=== PATIENT | male | born 1985 | race Caucasian/White ===

== ENCOUNTER 2017-12-30 15:20 | Emergency (ER) | payer MEDICAID, OTHER ==
[~2017-12-30] VITALS: Ht 180.3 cm; Wt 75.0 kg
[2017-12-30] MEDS ORDERED: HYDROcodone/APAP 5/325 TABLET PO ONE (16:00)
[2017-12-30] MEDS ORDERED: HYDROcodone/APAP 5/325 TABLET ONE (16:13)
[2017-12-30 16:37] LABS: BASOPHILS # (AUTO) 0.04 x10^3/uL (0-0.1); BASOPHILS % (AUTO) 1 % (0-1); EOSINOPHILS # (AUTO) 0.02 x10^3/uL (0-0.4); EOSINOPHILS % (AUTO) 0 % (1-7); LYMPHOCYTES # (AUTO) 1.21 x10^3/uL (1-3.4); LYMPHOCYTES % (AUTO) 13 % (22-44); MD NO; MEAN CORPUSCULAR HEMOGLOBIN 31.9 pg (27.5-34.5); MEAN CORPUSCULAR HGB CONC 34.4 g/dL (33.2-36.2); MEAN CORPUSCULAR VOLUME 92.8 fL (81-97); MEAN PLATELET VOLUME 8.2 fL (7.4-10.4); MONOCYTES # (AUTO) 0.54 x10^3/uL (0.2-0.8); MONOCYTES % (AUTO) 6 % (2-9); NEUTROPHILS # (AUTO) 7.19 x10^3/uL (1.8-6.8); NEUTROPHILS % (AUTO) 80 % (42-75); PLATELET COUNT 387 x10^3/uL (130-400); RED BLOOD COUNT 4.31 x10^6/uL (4.38-5.82); RED CELL DISTRIBUTION WIDTH 12.6 % (9.4-14.8)
[2017-12-30 16:40] LABS: ALBUMIN 4.2 g/dL (3.4-5.0); ANION GAP 8 mmol/L (5-15); CHLORIDE 109 mmol/L (98-107); CREATININE 1.12 mg/dL (0.7-1.3)
[2017-12-30] MEDS ORDERED: LORazepam 1MG TABLET ONE (17:24)
[2017-12-30] MEDS ORDERED: SODIUM CHLORIDE 0.9% 1,000ML IVBOLUS ONE (18:00)
[2017-12-30] MEDS ORDERED: LORazepam 1MG TABLET PO ONE (18:00)
[2017-12-30] MEDS ORDERED: LORazepam 2 MG/ML, 1ML IVPush STA (18:31)
[2017-12-30] MEDS ORDERED: LORazepam 2 MG/ML, 1ML ONE (18:36)
[2017-12-30 19:51] LABS: MICROSCOPIC AUTO
[2017-12-30 19:54] LABS: CULTURE INDICATED? NO
[2017-12-30] MEDS ORDERED: AZITHROMYCIN 500 MG TABLET PO ONE (21:00)
[2017-12-30] MEDS ORDERED: CEFTRIAXONE PMX 1GM/50ML 50 ML IV ONE (21:00)
[2017-12-30] MEDS ORDERED: AZITHROMYCIN 500 MG TABLET ONE ×2 (21:03→21:05)
[2017-12-30] MEDS ORDERED: CEFTRIAXONE PMX 1GM/50ML 50 ML ONE (21:03)
[2017-12-30 23:43] VITALS: BP 131/83
== END 2017-12-31 00:48 | disposition home or self-care (01) ==
LOC: ED 16:37 → MERGE 16:37 → ED 12-31 00:48
DX: F15.10 Other stimulant abuse, uncomplicated (principal); N41.0 Acute prostatitis
CPT/HCPCS: 36415; 74018; 80048; 81001; 82040; 85025; 96361; 96365; 96375; 99285; J0696; J2060; J7030